=== PATIENT | female | born 1945 | race Hispanic/Latino ===

== ENCOUNTER 2016-08-11 11:08 | Outpatient (CLI) | payer MEDICARE, OTHER ==
--- NOTE | 2016-08-11 12:41 | Ultrasound Report ---
ULTRASOUND RENAL BILATERAL Ultrasound bladder residual HISTORY: Urinary incontinence. TECHNIQUE: transabdominal ultrasound with color Doppler interrogation. FINDINGS: The right kidney measures 10.8 x 4.9 x 5.0cm. Right renal cortex: 1.5cm. The left kidney measures 11.6 x 4.8 x 5.7cm. Left renal cortex: 1.4cm. Scans of the kidneys show normal renal contours. There is normal central calyceal clustering and good preservation of the cortical thickness. There is no evidence of mass or hydronephrosis. 2 cm cyst is noted near the inferior pole of the left kidney. The views of the bladder and the region of the ureters appear normal. Prevoid bladder volume measures 63 cc. Post void residual measures 43 cc. IMPRESSION: Unremarkable renal ultrasound. 2 cm left renal cyst. Post void residual measures 43 cc.
== END 2016-08-11 11:09 | disposition home or self-care (01) ==
LOC: US 11:08
PROVIDERS: ATTEND Urology
DX: N39.41 Urge incontinence (principal); N28.1 Cyst of kidney, acquired
CPT/HCPCS: 76770; 76857